=== PATIENT | male | born 1965 | race Caucasian/White ===

== ENCOUNTER → 2016-10-29 | Outpatient (CLI) | payer MEDICARE, MEDICAID ==
[~2016-10-29] MED LIST: DILAUDID PO; LISINO PO; MORPHINE PO; NORVIR PO; OMNIPAQUE 350 MG/ML, 75ML BOTTLE ONE; REYTAZ PO; [UNRECOGNIZED DRUG - OTHER] SQ
== END | disposition home or self-care (01) ==
LOC: CFH 08:44
PROVIDERS: ATTEND Otolaryngology
DX: C09.9 Malignant neoplasm of tonsil, unspecified (principal); C77.0 Secondary and unspecified malignant neoplasm of lymph nodes of head, face and neck; R59.0 Localized enlarged lymph nodes; J98.11 Atelectasis
CPT/HCPCS: 71260; Q9967

== ENCOUNTER → 2017-07-25 | Outpatient (CLI) | payer MEDICARE, MEDICAID | END | disposition home or self-care (01) | LOC: CFH 13:09 | PROVIDERS: ATTEND Otolaryngology | DX: C77.0 Secondary and unspecified malignant neoplasm of lymph nodes of head, face and neck (principal); C09.9 Malignant neoplasm of tonsil, unspecified; Z90.49 Acquired absence of other specified parts of digestive tract | CPT/HCPCS: 71260; 82565; Q9967 ==

== ENCOUNTER → 2020-08-17 | Outpatient (CLI) | payer MEDICARE, MEDICAID ==
[~2020-08-17] MED LIST changes: +OMNIPAQUE 350 MG/ML, 150 ML BOTTLE ONE; -OMNIPAQUE 350 MG/ML, 75ML BOTTLE ONE
== END | disposition home or self-care (01) ==
LOC: CFH 10:01
PROVIDERS: ATTEND Otolaryngology
DX: C77.0 Secondary and unspecified malignant neoplasm of lymph nodes of head, face and neck (principal); C09.9 Malignant neoplasm of tonsil, unspecified; R63.4 Abnormal weight loss; B20 Human immunodeficiency virus [HIV] disease; N20.0 Calculus of kidney; N28.89 Other specified disorders of kidney and ureter
CPT/HCPCS: 70491; 71260; 74160; 82565; Q9967